=== PATIENT | female | born 1985 | race Two or more races ===

== ENCOUNTER 2019-04-14 09:25 | Emergency (ER) | payer OTHER ==
[~2019-04-14] VITALS: Ht 160 cm; Wt 54.4 kg
[~2019-04-14 09:25] MED LIST: NKM
--- NOTE | 2019-04-14 09:30 | NUR ---
ED Nurse Note: pt was brought in by [facility] for medical clearance, pt is under custody with [facility]. pt in on cuffs. pt was brought c/o posible heroin intoxication. pt aox4. able to talk and ambulate. pt not in distress. seen by umm. will continue to monitor.
--- NOTE | 2019-04-14 10:24 | NUR ---
ED Nurse Note:pt. is A/Ox4 ,[employer] is in her room, she was given PO zofran for nausea, VSS
[2019-04-14] MEDS ORDERED: NARCAN4 MG NS (11:07)
[2019-04-14 11:11] VITALS: BP 100/60
--- NOTE | 2019-04-14 11:11 | NUR ---
ER DISCHARGE NOTE: Patient is cleared to be discharged per ERMD,pt is ok to book, pt is aox4, on room air, with stable vital signs. pt was given dc and prescription instructions, pt was able to verbalize understanding, pt id band removed without complications. pt is able to ambulate with steady gait. pt took all belongings.
--- NOTE | 2019-04-14 13:55 | Emergency Room Report ---
History of Present Illness General Chief Complaint: Overdose Source: Patient, EMS Present Illness HPI Patient presents with reports of a drug overdose Speaking to the patient and she reports that she inhaled heroin At this time complains some epigastric discomfort denies any vomiting or diarrhea denies any chest pain denies any shortness of breath denies any dysuria frequency Patient is awake and alert GCS 15 Denies any focal weakness Allergies: Coded Allergies: No Known Allergies (Unverified , 04/14/19) Patient History Past Medical History: see triage record Pertinent Family History: none Now: Yes Reviewed Nursing Documentation: PMH: Agreed; PSxH: Agreed Nursing Documentation-PMH Past Medical History: No Stated History Review of Systems All Other Systems: negative except mentioned in HPI Physical Exam Vital Signs Date Time Temp Pulse Resp B/P (MAP) Pulse Ox O2 Delivery O2 Flow Rate FiO2 04/14/19 09:20 97.7 98 23 84/57 (66) 100 Room Air Sp02 EP Interpretation: reviewed, normal General Appearance: no apparent distress Head: normocephalic, atraumatic Eyes: bilateral eye PERRL, bilateral eye EOMI ENT: hearing grossly normal, normal pharynx Neck: supple Respiratory: chest non-tender, lungs clear Cardiovascular #1: regular rate, rhythm Gastrointestinal: non tender, soft Genitourinary: no CVA tenderness Musculoskeletal: normal inspection Neurologic: alert, oriented x3, responsive Skin: normal color, no rash Lymphatic: normal inspection Medical Decision Making Diagnostic Impression: Primary Impression: Drug overdose ER Course Patient is brought in with reports of possible overdose on heroin patient remains awake and alert throughout her stay did not require any further medications Is provided with antiemetics Remains hemodynamically stable and is eventually medically cleared for further booking Rhythm Strip Diag. Results EP Interpretation: yes Rate: 78 Rhythm: NSR, no PVC's, no ectopy Last Vital Signs Date Time Temp Pulse Resp B/P (MAP) Pulse Ox O2 Delivery O2 Flow Rate FiO2 04/14/19 10:23 98 23 Room Air 04/14/19 09:20 97.7 84/57 (66) 100 Status: improved Disposition: D/C TO [facility]NF[facility]CEMENT IN [facility] Condition: Improved Scripts Naloxone HCl (Narcan) 4 Mg [place] 4 MG NS PRN, #2 SPRAY Prov: Jennifer Madden DO 04/14/19 Referrals: NOT CHOSEN IPA/MD,REFERRING (PCP) [facility] Departure Forms: Detention Clearance Patient Instructions: Drug Overdose, Finding Treatment for Addiction, Inhalant Use Disorder Additional Instructions: Patient is provided with the discharge instructions notified to follow up with primary doctor in the next 2-3 days otherwise return to the er with any worsening symptoms. Please note that this report is being documented using DRAGON technology. This can lead to erroneous entry secondary to incorrect interpretation by the dictating instrument. Jennifer Madden DO Apr 14, 2019 13:55
== END 2019-04-14 11:11 ==
LOC: EDBD 09:25 → EMR 10:20
DX: T40.1X1A Poisoning by heroin, accidental (unintentional), initial encounter (principal); X58.XXXA Exposure to other specified factors, initial encounter; Y92.9 Unspecified place or not applicable
CPT/HCPCS: 99282